=== PATIENT | male | born 1985 | race Caucasian/White ===

== ENCOUNTER 2017-11-01 17:13 | Emergency (ER) | payer OTHER ==
[~2017-11-01] VITALS: Ht 182.9 cm; Wt 126.1 kg
[2017-11-01] MEDS ORDERED: ANXIETY MEDICATION (17:38)
[2017-11-01 18:45] LABS: APPEARANCE CLEAR ((CLEAR)); BILIRUBIN NEGATIVE; BLOOD SMALL; COLOR YELLOW ((YELLOW)); GLUCOSE (STRIP) NEGATIVE; KETONES NEGATIVE; LEUKOCYTES NEGATIVE; NITRITE NEGATIVE; PROTEIN (STRIP) NEGATIVE; SPECIFIC GRAVITY 1.012 (1.000-1.030); UROBILINOGEN 0.2 MG/DL (0.2-1.0)
[2017-11-01 18:55] LABS: BACTERIA NONE SEEN /HPF; EPITHELIAL CELLS NONE SEEN /HPF; MUCUS TRACE /LPF; UCUL ADDED? NO; WHITE BLOOD CELLS 0-5 /HPF (0-5)
[2017-11-01 19:36] LABS: HEMATOCRIT 43.3 % (38.0-50.0); HEMOGLOBIN 15.2 G/DL (12.5-16.6); MCH 29.7 PG (29.0-34.0); MCHC 35.1 G/DL (30.0-36.0); MCV 84.7 FL (86-99); PLATELET COUNT 298 K/uL (156-360); RBC DIS.WIDTH-CV 12.7 % (11.8-14.6); RBC DIS.WIDTH-SD 39.4 % (39-53); RED BLOOD COUNT 5.11 M/uL (4.00-5.50); WHITE BLOOD COUNT 10.3 K/uL (4.1-10.2)
[2017-11-01 19:44] LABS: ALBUMIN 4.7 g/dL (3.2-4.8); CHLORIDE 104 mEq/L (99-109); POTASSIUM 4.2 mEq/L (3.7-5.4); SODIUM 139 mEq/L (136-147)
[2017-11-01 19:46] LABS: GLUCOSE 98 mg/dL (70-99); TOTAL PROTEIN 7.6 g/dL (6.4-8.3)
[2017-11-01 19:48] LABS: TOTAL BILIRUBIN 0.5 mg/dL (0.0-1.0)
[2017-11-01 19:50] LABS: ALKALINE PHOSPHATASE 93 IU/L (3-129); GFR ESTIMATE (CALCULATED) > 59 mL/min/ (58.99-99999)
[2017-11-01 19:51] LABS: UREA NITROGEN (BUN) 11 mg/dL (9-23)
[2017-11-01 19:52] LABS: AST (GOT) 28 IU/L (2-34)
[2017-11-01 19:53] LABS: ALT (GPT) 27 IU/L (3-49)
[2017-11-01] MEDS ORDERED: MOTRIN600 MG PO (21:02)
[2017-11-01] MEDS ORDERED: NORCO 5/3251 TABLET PO (21:02)
[2017-11-01] MEDS ORDERED: DYNAPEN 250 MG250 MG PO (21:06)
[2017-11-01 21:24] VITALS: BP 142/90
== END 2017-11-01 21:25 | disposition home or self-care (01) ==
LOC: EME 17:13
PROVIDERS: Nurse Practitioner Family
DX: M70.22 Olecranon bursitis, left elbow (principal); S51.012A Laceration without foreign body of left elbow, initial encounter; M54.5 Low back pain; S40.212A Abrasion of left shoulder, initial encounter; W11.XXXA Fall on and from ladder, initial encounter; Y99.0 Civilian activity done for income or pay; N20.0 Calculus of kidney; R31.9 Hematuria, unspecified; K38.1 Appendicular concretions; Z87.442 Personal history of urinary calculi; F17.200 Nicotine dependence, unspecified, uncomplicated
CPT/HCPCS: 72202; 73080; 74177; 80053; 81003; 85027; 99281; 99285; J1885; J7030